=== PATIENT | male | born 1955 | race Caucasian/White ===

== ENCOUNTER → 2024-01-05 09:18 | Outpatient (CLI) | payer MEDICARE, SELFPAY ==
[2024-01-08 20:32] LABS: Fecal Immunochemical Test Negative (Negative)
[2024-01-25 12:51] LABS: Cholesterol 173 mg/dL (140-199); HDL Cholesterol 83 mg/dL (40-60); LDL Cholesterol Calculated 75 mg/dL (<100); Triglycerides 76 mg/dL (35-150)
== END ==
PROVIDERS: PCP Family Medicine; Referring Provider Family Medicine; Visit Provider Family Medicine
DX: Z13.9 Encounter for screening, unspecified (principal); Z12.11 Encounter for screening for malignant neoplasm of colon
CPT/HCPCS: 36415; 80061; 82274

== ENCOUNTER → 2025-04-29 15:31 | Outpatient (CLI) | payer MEDICARE, SELFPAY | PROVIDERS: PCP Family Medicine; Referring Provider Family Medicine; Visit Provider Family Medicine | DX: Z12.11 Encounter for screening for malignant neoplasm of colon (principal) | CPT/HCPCS: 82274 ==

== ENCOUNTER → 2025-06-27 08:18 | Outpatient (CLI) | payer MEDICARE, SELFPAY ==
[2025-06-27 08:50] LABS: Hemoglobin A1C% w Est Avg Glu 5.3 % (4.0-6.0)
[2025-06-27 09:00] LABS: Cholesterol 191 mg/dL (140-199); HDL Cholesterol 75 mg/dL (40-60); Triglycerides 78 mg/dL (35-150)
[2025-06-27 09:49] LABS: Hep C Virus Ab w/Reflex Quant NEGATIVE s/c (NEGATIVE)
[2025-06-29 08:08] LABS: PSA, Total 4.7 ng/mL (0.0-4.0)
== END ==
PROVIDERS: PCP Family Medicine; Referring Provider Family Medicine; Visit Provider Family Medicine
DX: Z13.1 Encounter for screening for diabetes mellitus (principal); E78.5 Hyperlipidemia, unspecified; N40.0 Benign prostatic hyperplasia without lower urinary tract symptoms; N52.9 Male erectile dysfunction, unspecified
CPT/HCPCS: 36415; 80061; 83036; 84153; 84154; 86803